=== PATIENT | male | born 1935 | race Caucasian/White ===

== ENCOUNTER 2016-12-22 11:47 | Emergency (ER) | payer OTHER ==
[~2016-12-22] VITALS: Ht 167.6 cm; Wt 77.0 kg
[~2016-12-22 11:47] MED LIST: AMLO10TA4 PO; ASPI-518 PO; FINA5TAB3 PO; GLIP1TAB PO; LISI1TAB13 PO; MULT1TAB9 PO; SIMV20TA2 PO; TAMS-11 PO
[2016-12-22 12:39] LABS: BASOPHILS % 0.4 % (0.0-2.0); EOSINOPHILS % 1.8 % (0.0-5.0); HEMATOCRIT. 38.9 % (42.0-52.0); HEMOGLOBIN. 13.5 g/dL (14.0-18.0); MEAN CORPUSCULAR HEMOGLOBIN 29.3 pg (28.0-32.0); MEAN CORPUSCULAR VOLUME 84.8 fL (80.0-94.0); MEAN PLATELET VOLUME 8.3 fl (7.4-10.4); MONOCYTES % 6.1 % (2.0-8.0); NEUTROPHILS % 71.7 % (40.0-76.0); PLATELET 160 x1000/uL (130-400); RED BLOOD CELL COUNT 4.59 mill/uL (4.7-6.1); RED CELL DISTRIBUTION WIDTH 14.2 % (11.6-14.6)
[2016-12-22 12:48] LABS: INR 1.1
[2016-12-22 12:51] LABS: CARBON DIOXIDE 30 mEq/L (21-32); CHLORIDE 102 mEq/L (98-107)
[2016-12-22 12:56] LABS: TROPONIN I < 0.02 ng/mL (0.00-0.04)
[2016-12-22] MEDS ORDERED: AMPICILLIN SOD/SULBACTAM NA 3 G in SODIUM CHLORIDE 0.9% 100 ML IV SCH (13:15)
[2016-12-22 15:12] VITALS: BP 138/76
== END 2016-12-22 15:11 | disposition home or self-care (01) ==
LOC: ER 13:25
DX: S61.250A Open bite of right index finger without damage to nail, initial encounter (principal); L03.011 Cellulitis of right finger; R56.9 Unspecified convulsions; R32 Unspecified urinary incontinence; E11.9 Type 2 diabetes mellitus without complications; Z79.82 Long term (current) use of aspirin; M19.012 Primary osteoarthritis, left shoulder; W55.01XA Bitten by cat, initial encounter; Y93.89 Activity, other specified; Y92.89 Other specified places as the place of occurrence of the external cause; Y99.8 Other external cause status
CPT/HCPCS: 36415; 71010; 80048; 83880; 84484; 85025; 85610; 93005; 96365; 99285; J0295; J7050

== ENCOUNTER 2019-05-17 19:14 | Emergency (ER) | payer MEDICARE, OTHER ==
[~2019-05-17] VITALS: Ht 165.1 cm; Wt 78.0 kg
[2019-05-17] MEDS ORDERED: DOCUSATE SODIUM 100MG CAPSULE PO ONE (23:00)
[2019-05-17] MEDS ORDERED: NA PHOS,M-B/NA PHOS,DI-BA ENEMA 118ML PR ONE (23:00)
[2019-05-18 00:19] VITALS: BP 155/90
== END 2019-05-18 00:21 | disposition home or self-care (01) ==
LOC: ER 19:14
DX: K59.00 Constipation, unspecified (principal); I10 Essential (primary) hypertension; E11.9 Type 2 diabetes mellitus without complications; Z79.82 Long term (current) use of aspirin
CPT/HCPCS: 99283

== ENCOUNTER 2021-03-02 16:30 | Emergency (ER) | payer OTHER ==
[~2021-03-02] VITALS: Ht 167.6 cm; Wt 80.0 kg
[2021-03-02 19:51] VITALS: BP 143/94
== END 2021-03-02 19:51 | disposition home or self-care (01) ==
LOC: ER 16:30
DX: E11.65 Type 2 diabetes mellitus with hyperglycemia (principal); J44.1 Chronic obstructive pulmonary disease with (acute) exacerbation; I10 Essential (primary) hypertension; Z79.899 Other long term (current) drug therapy
CPT/HCPCS: 82962; 99281

== ENCOUNTER 2024-07-31 11:31 | Emergency (ER) | payer OTHER, MEDICAID ==
[~2024-07-31] VITALS: Ht 165.1 cm; Wt 70.0 kg
[~2024-07-31 11:31] MED LIST changes: +FINA-37 PO; -FINA5TAB3 PO; +SIMV-343 PO; -SIMV20TA2 PO
[2024-07-31 11:33] VITALS: O2SAT 97
[2024-07-31] MEDS ORDERED: NA PHOS,M-B/NA PHOS,DI-BA ENEMA 118ML PR ONE (12:00)
[2024-07-31] MEDS: LACTULOSE 20G/30ML UDC PO ONE (12:24)
[2024-07-31] MEDS: SODIUM CHLORIDE 0.9% 1,000 ML IV ONE (12:24)
[2024-07-31 12:32] LABS: BASOPHILS % 0.3 % (0.0-2.0); EOSINOPHILS % 0.5 % (0.0-5.0); HEMATOCRIT. 38.7 % (42.0-52.0); HEMOGLOBIN. 12.6 g/dL (14.0-18.0); LYMPHOCYTES % 11.4 % (20.0-50.0); MEAN CORPUSCULAR HGB CONC 32.5 g/dL (31.0-37.0); MEAN CORPUSCULAR VOLUME 89.2 fL (80.0-94.0); MEAN PLATELET VOLUME 8.2 fl (7.4-10.4); MONOCYTES % 2.5 % (2.0-8.0); NEUTROPHILS % 85.3 % (40.0-76.0); PLATELET 186 x1000/uL (130-400); RED BLOOD CELL COUNT 4.34 mill/uL (4.7-6.1); RED CELL DISTRIBUTION WIDTH 15.3 % (11.6-14.6); WHITE BLOOD COUNT 5.6 x1000/uL (4.5-11.0)
[2024-07-31 12:37] LABS: CARBON DIOXIDE 26 mEq/L (21-32); CHLORIDE 109 mEq/L (98-107); POTASSIUM 4.7 mEq/L (3.5-5.1); SODIUM 142 mEq/L (136-145)
[2024-07-31 12:38] LABS: CALCIUM 9.1 mg/dL (8.7-10.4)
[2024-07-31 12:42] LABS: CREATININE 0.9 mg/dL (0.6-1.3)
[2024-07-31 12:43] LABS: GLUCOSE 168 mg/dL (70-105); UREA NITROGEN BLOOD 22 mg/dL (9-23)
[2024-07-31 14:32] LABS: PROTHROMBIN TIME 11.2 sec (9.6-11.0)
[2024-07-31] MEDS ORDERED: CLONIDINE 0.1MG TABLET PO PRN (14:45)
[2024-07-31] MEDS ORDERED: MAGNESIUM/ALUMINUM HYDROXIDE/SIMETHICONE 30ML UDC PO PRN (14:45)
[2024-07-31] MEDS ORDERED: DOCUSATE SODIUM 100MG CAPSULE PO PRN (14:45)
[2024-07-31] MEDS ORDERED: NA PHOS,M-B/NA PHOS,DI-BA ENEMA 118ML PR PRN (14:45)
[2024-07-31] MEDS ORDERED: ONDANSETRON HCL 4MG/2ML INJ IV PRN (14:45)
[2024-07-31] MEDS ORDERED: DIPHENHYDRAMINE 50MG/ML VIAL IV PRN (14:45)
[2024-07-31] MEDS ORDERED: GUAIFENESIN 200MG/10ML SUGAR FREE UDC PO PRN (14:45)
[2024-07-31] MEDS ORDERED: ACETAMINOPHEN 325MG TABLET PO PRN ×2 (14:45)
[2024-07-31 16:21] VITALS: BP 101/53; PULSE 66; RESP 18; TEMP 36.7; O2SAT 98
== END 2024-07-31 16:22 | disposition home or self-care (01) ==
LOC: ER 11:34 → CANBEDREQ 13:54 → ER 16:22
DX: K56.41 Fecal impaction (principal); N13.8 Other obstructive and reflux uropathy; J44.9 Chronic obstructive pulmonary disease, unspecified; N40.1 Benign prostatic hyperplasia with lower urinary tract symptoms; I10 Essential (primary) hypertension; E11.9 Type 2 diabetes mellitus without complications; Z79.82 Long term (current) use of aspirin; Z79.84 Long term (current) use of oral hypoglycemic drugs; Z79.899 Other long term (current) drug therapy
CPT/HCPCS: 99284; 74176; 80048; 83690; 85025; 85610; 36415; 74018; J7030